=== PATIENT | male | born 1965 | race American Indian/Alaskan Native ===

== ENCOUNTER 2020-05-04 16:32 | Emergency (ER) | payer BC ==
[~2020-05-04] VITALS: Ht 177.8 cm; Wt 81.6 kg
[2020-05-04 16:44] VITALS: BP 120/61
--- NOTE | 2020-05-04 16:50 | NUR ---
54 y/o male from home c/o cough, sob, and fever x 1 wk. RR even and unlabored. Skin hot, dry, intact. Dry cough noted at this time. Unknown + covid contact. Pt received 650mg Tylenol at approx 1300 with no relief of fever. Positioned for comfort. Placed on bedside monitor. medhx: cirrhosis, anemia
--- NOTE | 2020-05-04 16:52 | NUR ---
Dr Guzman at bedside examining patient
[2020-05-04] MEDS ORDERED: DEXAMETHASONE 10 MG/ML VIAL IVP ONE (16:55)
[2020-05-04] MEDS ORDERED: IBUPROFEN 800 MG TAB PO ONE (16:55)
[2020-05-04] MEDS ORDERED: ALBUTEROL HFA MDI 90 MCG/ACTUATION 8 GM INH ONE (16:55)
--- NOTE | 2020-05-04 16:58 | NUR ---
Covid Jacqui swab collected and sent to lab.
[2020-05-04] MEDS ORDERED: cefTRIAXone 1,000 MG VIAL ONE (17:01)
--- NOTE | 2020-05-04 17:10 | NUR ---
20G IV placed to left forearm, blood and cultures drawn at this time
--- NOTE | 2020-05-04 17:16 | NUR ---
Xray at bedside
[2020-05-04 17:29] LABS: BASOPHILS % (AUTO) 0.1 % (0.0-2.0); EOSINOPHILS # (AUTO) 0.1 K/uL (0-0.4); EOSINOPHILS % (AUTO) 1.9 % (0.0-4.0); HEMATOCRIT 32.4 % (36-52); HEMOGLOBIN 10.7 g/dL (12.0-18.0); LYMPHOCYTES # (AUTO) 0.9 K/uL (2.0-11.5); LYMPHOCYTES % (AUTO) 24.3 % (20.5-51.1); MEAN CORPUSCULAR HEMOGLOBIN 29 pg (27-31); MEAN CORPUSCULAR HGB CONC 33 g/dL (33-37); MEAN CORPUSCULAR VOLUME 87.9 fL (80-94); MONOCYTES # (AUTO) 0.5 K/uL (0.8-1.0); MONOCYTES % (AUTO) 14.2 % (1.7-9.3); NEUTROPHILS # (AUTO) 2.3 K/uL (1.8-7.7); NEUTROPHILS % (AUTO) 59.5 % (42.2-75.2); PLATELET COUNT (AUTO) 79 K/uL (140-450); RED BLOOD CELL COUNT(AUTO) 3.69 MIL/uL (4.20-6.10); RED CELL DISTRIBUTION WIDTH 27.7 % (11.6-13.7); WHITE BLOOD COUNT (AUTO) 3.9 K/uL (4.8-10.8)
[2020-05-04 17:45] LABS: FIBRINOGEN 202 mg/dL (200-400); PROTHROMBIN TIME 15.3 secs (10.8-13.4)
[2020-05-04 17:47] LABS: ALBUMIN 1.9 g/dL (3.4-5.0); ANION GAP 10.8 (8-16); CARBON DIOXIDE 26.5 mmol/L (21-32); CREATININE 0.8 mg/dL (0.6-1.3); POTASSIUM 3.3 mmol/L (3.5-5.1); TOTAL BILIRUBIN 0.8 mg/dL (0.0-1.0)
[2020-05-04 18:05] LABS: D-DIMER < 100 ng/ml (0-400)
[2020-05-04 18:09] LABS: APPEARANCE,URINE CLEAR (CLEAR); BILIRUBIN,URINE 1+ (NEGATIVE); BLOOD, URINE NEGATIVE (NEGATIVE); LEUKOCYTE ESTERASE ,URINE NEGATIVE (NEGATIVE); NITRITE, URINE NEGATIVE (NEGATIVE); UGLUCOSE NEGATIVE (NEGATIVE)
[2020-05-04] MEDS ORDERED: FERR-212 PO (18:11)
[2020-05-04 18:19] LABS: COLOR,URINE YELLOW (YELLOW)
--- NOTE | 2020-05-04 18:46 | NUR ---
IV d/c 2x2 gauze placed to iv site. Bleeding controlled.
--- NOTE | 2020-05-04 18:50 | NUR ---
Patient discharged with v/s stable. Written and verbal after care instructions given and explained. Patient alert, oriented and verbalized understanding of instructions. Ambulatory with steady gait. All questions addressed prior to discharge. ID band removed. Patient advised to follow up with PMD. Rx of Albuterol, Levoflexacin 750mg, Prednisone 20mg, and Tessalon Perles 100mg given. Patient educated on indication of medication including possible reaction and side effects. Opportunity to ask questions provided and answered.
[2020-05-04 18:51] VITALS: BP 118/59
== END 2020-05-04 18:50 | disposition home or self-care (01) ==
LOC: MED 16:32
DX: U07.1 COVID-19 (principal); D64.9 Anemia, unspecified; Z79.899 Other long term (current) drug therapy
CPT/HCPCS: 36415; 71045; 80053; 81003; 82728; 83605; 83880; 84484; 85025; 85379; 85384; 85610; 85730; 87040; 87086; 87426; 94664; 96365; 96375; 99284; J0696; J1100

== ENCOUNTER 2020-07-31 09:12 | Inpatient (IN) | payer BC, SELFPAY ==
[~2020-07-31] VITALS: Ht 180.3 cm; Wt 77.1 kg
[~2020-07-31 09:12] MED LIST: FERR-212 PO
[2020-07-31 09:17] VITALS: BP 141/76
[2020-07-31] MEDS ORDERED: NACL 0.9% 1,000 ML IV ONE (09:25)
[2020-07-31 09:50] LABS: BASOPHILS # (AUTO) 0.2 K/uL (0.00-0.22); BASOPHILS % (AUTO) 3.2 % (0.0-2.0); EOSINOPHILS # (AUTO) 0.4 K/uL (0-0.4); EOSINOPHILS % (AUTO) 7.2 % (0.0-4.0); HEMATOCRIT 24.7 % (36-52); HEMOGLOBIN 7.8 g/dL (12.0-18.0); LYMPHOCYTES # (AUTO) 0.9 K/uL (2.0-11.5); MEAN CORPUSCULAR HEMOGLOBIN 29 pg (27-31); MEAN CORPUSCULAR HGB CONC 32 g/dL (33-37); MEAN CORPUSCULAR VOLUME 89.8 fL (80-94); MONOCYTES # (AUTO) 0.8 K/uL (0.8-1.0); MONOCYTES % (AUTO) 15.6 % (1.7-9.3); NEUTROPHILS # (AUTO) 2.9 K/uL (1.8-7.7); PLATELET COUNT (AUTO) 116 K/uL (140-450); RED BLOOD CELL COUNT(AUTO) 2.75 MIL/uL (4.20-6.10); RED CELL DISTRIBUTION WIDTH 17.1 % (11.6-13.7); WHITE BLOOD COUNT (AUTO) 5.1 K/uL (4.8-10.8)
[2020-07-31 10:00] LABS: PROTHROMBIN TIME 15.6 secs (10.8-13.4)
[2020-07-31 10:05] LABS: ALBUMIN 2.1 g/dL (3.4-5.0); ANION GAP 8.3 (8-16); CARBON DIOXIDE 25.3 mmol/L (21-32); CREATININE 0.9 mg/dL (0.6-1.3); POTASSIUM 3.6 mmol/L (3.5-5.1); TOTAL BILIRUBIN 2.8 mg/dL (0.0-1.0)
[2020-07-31] MEDS ORDERED: LACT-103 PO (10:21)
[2020-07-31 12:15] VITALS: BP 130/78
[2020-07-31] MEDS ORDERED: ONDANSETRON 4 MG/2 ML VIAL IM/IVP PRN (12:35)
[2020-07-31] MEDS ORDERED: DOCUSATE SODIUM 100 MG GELCAP PO PRN (12:35)
[2020-07-31] MEDS ORDERED: ZOLPIDEM 5 MG TAB PO PRN (12:35)
[2020-07-31] MEDS ORDERED: POTASSIUM CHLORIDE 10 MEQ TABER PO PRN (12:35)
[2020-07-31] MEDS ORDERED: guaiFENesin DM 200/20 MG-10 ML 10 ML UDC PO PRN (12:35)
[2020-07-31] MEDS ORDERED: ACETAMINOPHEN 325 MG TAB PO PRN (12:35)
[2020-07-31] MEDS: DEXT 5% /NACL 0.9% 1,000 ML IV SCH (13:34)
[2020-07-31 13:48] LABS: FREE T4 (FREE THYROXINE) 1.24 ng/dL (0.76-1.46); MAGNESIUM 1.7 mg/dL (1.8-2.4); PHOSPHORUS 3.3 mg/dL (2.5-4.9); THYROID STIMULATING HORMONE 1.94 uIU/mL (0.34-3.74)
[2020-07-31 14:51] LABS: APPEARANCE,URINE CLEAR (CLEAR); BILIRUBIN,URINE 1+ (NEGATIVE); BLOOD, URINE NEGATIVE (NEGATIVE); COLOR,URINE ORANGE (YELLOW); LEUKOCYTE ESTERASE ,URINE NEGATIVE (NEGATIVE); NITRITE, URINE NEGATIVE (NEGATIVE); UGLUCOSE NEGATIVE (NEGATIVE)
[2020-07-31 16:00] VITALS: BP 126/68
[2020-07-31] MEDS ORDERED: MAG SULF 2000 MG/WATER PREMIX 50 ML IV SCH (17:20)
[2020-07-31] MEDS: OCTREOTIDE ACETATE 1.25 MG in NACL 0.9% 250 ML IV SCH (19:30)
[2020-07-31 20:00] VITALS: BP 117/68
[2020-07-31] MEDS ORDERED: PHYTONADIONE 1 MG/0.5 ML SYR IM SCH (20:55)
[2020-07-31] MEDS ORDERED: MIDAZOLAM 2 MG/2 ML VIAL ONE (21:17)
[2020-07-31] MEDS ORDERED: fentaNYL citrate 0.05 MG/ML VIAL ONE (21:17)
[2020-07-31] MEDS ORDERED: diphenhydrAMINE 50 MG/ML VIAL ONE (21:17)
[2020-07-31] MEDS ORDERED: PHYTONADIONE 10 MG/ML AMP ONE (22:43)
[2020-07-31] MEDS: LACTULOSE 20 GM/30 ML UDC PO SCH (23:01)
[2020-07-31] MEDS: FERROUS SULFATE 325 MG TABEC PO SCH (23:01)
[2020-07-31] MEDS ORDERED: MIDAZOLAM 2 MG/2 ML VIAL IVP ONE (23:15)
[2020-07-31] MEDS ORDERED: fentaNYL citrate 0.05 MG/ML VIAL IVP ONE (23:15)
[2020-08-01] VITALS: BP 146/67
[2020-08-01 01:46] LABS: BASOPHILS # (AUTO) 0.1 K/uL (0.00-0.22); BASOPHILS % (AUTO) 1.7 % (0.0-2.0); EOSINOPHILS # (AUTO) 0.4 K/uL (0-0.4); EOSINOPHILS % (AUTO) 8.1 % (0.0-4.0); HEMATOCRIT 23.2 % (36-52); HEMOGLOBIN 7.5 g/dL (12.0-18.0); LYMPHOCYTES % (AUTO) 19.8 % (20.5-51.1); MEAN CORPUSCULAR HEMOGLOBIN 29 pg (27-31); MEAN CORPUSCULAR HGB CONC 32 g/dL (33-37); MEAN CORPUSCULAR VOLUME 88.9 fL (80-94); MONOCYTES # (AUTO) 0.7 K/uL (0.8-1.0); MONOCYTES % (AUTO) 14.2 % (1.7-9.3); NEUTROPHILS # (AUTO) 2.8 K/uL (1.8-7.7); NEUTROPHILS % (AUTO) 56.2 % (42.2-75.2); PLATELET COUNT (AUTO) 99 K/uL (140-450); RED BLOOD CELL COUNT(AUTO) 2.61 MIL/uL (4.20-6.10); RED CELL DISTRIBUTION WIDTH 16.6 % (11.6-13.7)
[2020-08-01 04:00] VITALS: BP 96/45
[2020-08-01] MEDS: DEXT 5% /NACL 0.9% 1,000 ML IV SCH (05:09)
[2020-08-01 07:07] LABS: BASOPHILS # (AUTO) 0.1 K/uL (0.00-0.22); BASOPHILS % (AUTO) 1.4 % (0.0-2.0); EOSINOPHILS # (AUTO) 0.4 K/uL (0-0.4); EOSINOPHILS % (AUTO) 7.8 % (0.0-4.0); HEMATOCRIT 22.2 % (36-52); HEMOGLOBIN 7.3 g/dL (12.0-18.0); LYMPHOCYTES # (AUTO) 0.6 K/uL (2.0-11.5); LYMPHOCYTES % (AUTO) 14.1 % (20.5-51.1); MEAN CORPUSCULAR HEMOGLOBIN 29 pg (27-31); MEAN CORPUSCULAR HGB CONC 33 g/dL (33-37); MEAN CORPUSCULAR VOLUME 88.2 fL (80-94); MONOCYTES # (AUTO) 0.6 K/uL (0.8-1.0); NEUTROPHILS # (AUTO) 2.9 K/uL (1.8-7.7); NEUTROPHILS % (AUTO) 63.7 % (42.2-75.2); PLATELET COUNT (AUTO) 91 K/uL (140-450); RED BLOOD CELL COUNT(AUTO) 2.52 MIL/uL (4.20-6.10); RED CELL DISTRIBUTION WIDTH 17.1 % (11.6-13.7); WHITE BLOOD COUNT (AUTO) 4.6 K/uL (4.8-10.8)
[2020-08-01 07:29] LABS: ANION GAP 7.7 (8-16); CARBON DIOXIDE 24.9 mmol/L (21-32); CREATININE 0.7 mg/dL (0.6-1.3); POTASSIUM 3.6 mmol/L (3.5-5.1)
[2020-08-01 08:00] VITALS: BP 166/60
[2020-08-01] MEDS: PANTOPRAZOLE 40 MG TABEC PO SCH (08:25)
[2020-08-01] MEDS: FERROUS SULFATE 325 MG TABEC PO SCH ×2 (08:26→20:09)
[2020-08-01] MEDS: LACTULOSE 20 GM/30 ML UDC PO SCH (08:28)
[2020-08-01] MEDS ORDERED: LACTULOSE 20 GM/30 ML UDC PO SCH ×2 (09:00→09:30)
[2020-08-01] MEDS ORDERED: HYDROCORTISONE SUPPOSITORY 25 MG SUPP RC SCH (09:00)
[2020-08-01] MEDS ORDERED: SENNA 8.6 MG TAB PO SCH (09:00)
[2020-08-01] MEDS ORDERED: MAG SULF 2000 MG/WATER PREMIX 50 ML IV SCH (09:00)
[2020-08-01] MEDS ORDERED: IRON SUCROSE COMPLEX 100 MG/5 ML VIAL IVP SCH (09:00)
[2020-08-01 09:06] LABS: T4 (THYROXINE) 5.8 ug/dL (4.5-12.0)
[2020-08-01 12:00] VITALS: BP 123/64
[2020-08-01] MEDS: MIDODRINE 5 MG TAB PO SCH ×2 (13:00→18:13)
[2020-08-01 14:50] LABS: BASOPHILS # (AUTO) 0.1 K/uL (0.00-0.22); EOSINOPHILS # (AUTO) 0.4 K/uL (0-0.4); EOSINOPHILS % (AUTO) 6.8 % (0.0-4.0); HEMOGLOBIN 7.2 g/dL (12.0-18.0); LYMPHOCYTES # (AUTO) 0.9 K/uL (2.0-11.5); LYMPHOCYTES % (AUTO) 15.2 % (20.5-51.1); MEAN CORPUSCULAR HEMOGLOBIN 29 pg (27-31); MEAN CORPUSCULAR HGB CONC 33 g/dL (33-37); MEAN CORPUSCULAR VOLUME 88.4 fL (80-94); MONOCYTES # (AUTO) 0.8 K/uL (0.8-1.0); MONOCYTES % (AUTO) 13.6 % (1.7-9.3); NEUTROPHILS # (AUTO) 3.6 K/uL (1.8-7.7); NEUTROPHILS % (AUTO) 63.4 % (42.2-75.2); PLATELET COUNT (AUTO) 99 K/uL (140-450); RED BLOOD CELL COUNT(AUTO) 2.49 MIL/uL (4.20-6.10); RED CELL DISTRIBUTION WIDTH 17.3 % (11.6-13.7); WHITE BLOOD COUNT (AUTO) 5.7 K/uL (4.8-10.8)
[2020-08-01] MEDS ORDERED: MIDAZOLAM 5 MG/5 ML VIAL ONE (15:35)
[2020-08-01] MEDS ORDERED: diphenhydrAMINE 50 MG/ML VIAL ONE (15:35)
[2020-08-01] MEDS ORDERED: fentaNYL citrate 0.05 MG/ML VIAL ONE (15:35)
[2020-08-01 16:00] VITALS: BP 107/72
[2020-08-01] MEDS ORDERED: fentaNYL citrate 0.05 MG/ML VIAL IVP ONE (16:40)
[2020-08-01] MEDS ORDERED: MIDAZOLAM 2 MG/2 ML VIAL IVP ONE (16:40)
[2020-08-01] MEDS ORDERED: MINERAL OIL 30 ML UDC PO SCH (17:00)
[2020-08-01] MEDS ORDERED: SPIRONOLACTONE 50 MG TAB PO SCH (17:00)
[2020-08-01] MEDS ORDERED: FUROSEMIDE 20 MG/2 ML VIAL IVP SCH (17:15)
[2020-08-01] MEDS: HYDROcodone/APAP 7.5/325 MG 1 TAB PO PRN (17:23)
[2020-08-01] MEDS: OCTREOTIDE ACETATE 1.25 MG in NACL 0.9% 250 ML IV SCH (18:13)
[2020-08-01 20:00] VITALS: BP 99/76
[2020-08-01] MEDS: POLYETHYLENE GLYCOL 17 GM/PKT PO SCH (21:32)
[2020-08-02] VITALS: BP 109/60
[2020-08-02 04:00] VITALS: BP 103/57
[2020-08-02] MEDS: DEXT 5% /NACL 0.9% 1,000 ML IV SCH (05:16)
[2020-08-02] MEDS: MIDODRINE 5 MG TAB PO SCH ×4 (06:05→19:00)
[2020-08-02 06:29] LABS: BASOPHILS # (AUTO) 0.1 K/uL (0.00-0.22); EOSINOPHILS # (AUTO) 0.5 K/uL (0-0.4); EOSINOPHILS % (AUTO) 6.2 % (0.0-4.0); HEMATOCRIT 21.9 % (36-52); HEMOGLOBIN 7.3 g/dL (12.0-18.0); LYMPHOCYTES % (AUTO) 12.7 % (20.5-51.1); MEAN CORPUSCULAR HEMOGLOBIN 30 pg (27-31); MEAN CORPUSCULAR HGB CONC 33 g/dL (33-37); MEAN CORPUSCULAR VOLUME 89.2 fL (80-94); MONOCYTES % (AUTO) 12.6 % (1.7-9.3); NEUTROPHILS # (AUTO) 5.5 K/uL (1.8-7.7); NEUTROPHILS % (AUTO) 67.5 % (42.2-75.2); PLATELET COUNT (AUTO) 108 K/uL (140-450); RED BLOOD CELL COUNT(AUTO) 2.45 MIL/uL (4.20-6.10); RED CELL DISTRIBUTION WIDTH 16.9 % (11.6-13.7); WHITE BLOOD COUNT (AUTO) 8.2 K/uL (4.8-10.8)
[2020-08-02 06:56] LABS: CARBON DIOXIDE 25.1 mmol/L (21-32); CREATININE 0.9 mg/dL (0.6-1.3); POTASSIUM 4.1 mmol/L (3.5-5.1)
[2020-08-02 08:00] VITALS: BP 119/60
[2020-08-02] MEDS: POLYETHYLENE GLYCOL 17 GM/PKT PO SCH ×2 (09:49→20:23)
[2020-08-02] MEDS: FERROUS SULFATE 325 MG TABEC PO SCH ×2 (09:51→20:23)
[2020-08-02] MEDS: SPIRONOLACTONE 50 MG TAB PO SCH (09:51)
[2020-08-02] MEDS: MINERAL OIL 30 ML UDC PO SCH (09:52)
[2020-08-02] MEDS: PANTOPRAZOLE 40 MG TABEC PO SCH (09:52)
[2020-08-02 12:00] VITALS: BP 107/60
[2020-08-02] MEDS ORDERED: FUROSEMIDE 20 MG/2 ML VIAL IVP SCH (13:30)
[2020-08-02 16:00] VITALS: BP 110/61
[2020-08-02 20:00] VITALS: BP 119/56
[2020-08-02] MEDS: PROPRANOLOL 20 MG TAB PO SCH (20:30)
[2020-08-03] VITALS: BP 114/62
[2020-08-03 04:00] VITALS: BP 110/49
[2020-08-03] MEDS: MIDODRINE 5 MG TAB PO SCH ×3 (06:39→18:31)
[2020-08-03 07:05] LABS: BASOPHILS # (AUTO) 0.1 K/uL (0.00-0.22); BASOPHILS % (AUTO) 1.3 % (0.0-2.0); EOSINOPHILS # (AUTO) 0.5 K/uL (0-0.4); EOSINOPHILS % (AUTO) 7.6 % (0.0-4.0); HEMOGLOBIN 7.2 g/dL (12.0-18.0); LYMPHOCYTES % (AUTO) 16.7 % (20.5-51.1); MEAN CORPUSCULAR HEMOGLOBIN 30 pg (27-31); MEAN CORPUSCULAR HGB CONC 33 g/dL (33-37); MEAN CORPUSCULAR VOLUME 91.1 fL (80-94); MONOCYTES # (AUTO) 0.9 K/uL (0.8-1.0); MONOCYTES % (AUTO) 15.1 % (1.7-9.3); NEUTROPHILS # (AUTO) 3.7 K/uL (1.8-7.7); NEUTROPHILS % (AUTO) 59.3 % (42.2-75.2); PLATELET COUNT (AUTO) 106 K/uL (140-450); RED BLOOD CELL COUNT(AUTO) 2.42 MIL/uL (4.20-6.10); RED CELL DISTRIBUTION WIDTH 17.2 % (11.6-13.7); WHITE BLOOD COUNT (AUTO) 6.2 K/uL (4.8-10.8)
[2020-08-03 07:20] LABS: ANION GAP 7.2 (8-16); CARBON DIOXIDE 27.4 mmol/L (21-32); CREATININE 0.8 mg/dL (0.6-1.3); POTASSIUM 3.6 mmol/L (3.5-5.1)
[2020-08-03 08:00] VITALS: BP 101/52
[2020-08-03] MEDS: PROPRANOLOL 20 MG TAB PO SCH ×2 (08:51→21:00)
[2020-08-03] MEDS: FERROUS SULFATE 325 MG TABEC PO SCH ×2 (08:52→21:34)
[2020-08-03] MEDS: SPIRONOLACTONE 50 MG TAB PO SCH ×2 (08:52→21:34)
[2020-08-03] MEDS: PANTOPRAZOLE 40 MG TABEC PO SCH (08:52)
[2020-08-03] MEDS: MINERAL OIL 30 ML UDC PO SCH (08:59)
[2020-08-03] MEDS: POLYETHYLENE GLYCOL 17 GM/PKT PO SCH ×2 (08:59→12:03)
[2020-08-03] MEDS ORDERED: FUROSEMIDE 20 MG/2 ML VIAL IVP SCH (11:00)
[2020-08-03] MEDS ORDERED: POTASSIUM CHLORIDE 20% 40 MEQ/15 ML UDC PO SCH (11:00)
[2020-08-03 12:59] VITALS: BP 106/61
[2020-08-03 16:00] VITALS: BP 106/56
[2020-08-03] MEDS ORDERED: FERR-212 PO (17:22)
[2020-08-03] MEDS ORDERED: LACT-103 PO (17:22)
[2020-08-03] MEDS ORDERED: SPIR50TA PO (17:22)
[2020-08-03] MEDS ORDERED: PRO5 PO (17:22)
[2020-08-03] MEDS ORDERED: [UNRECOGNIZED DRUG - CODE] PO (17:22)
[2020-08-03] MEDS ORDERED: PROP20TA29 PO (17:22)
[2020-08-03] MEDS ORDERED: FURO20TA8 PO (17:22)
[2020-08-03 20:00] VITALS: BP 113/59
[2020-08-03 20:34] LABS: BASOPHILS # (AUTO) 0.1 K/uL (0.00-0.22); BASOPHILS % (AUTO) 1.9 % (0.0-2.0); EOSINOPHILS # (AUTO) 0.7 K/uL (0-0.4); EOSINOPHILS % (AUTO) 9.3 % (0.0-4.0); HEMATOCRIT 25.6 % (36-52); HEMOGLOBIN 8.3 g/dL (12.0-18.0); LYMPHOCYTES # (AUTO) 1.2 K/uL (2.0-11.5); LYMPHOCYTES % (AUTO) 15.9 % (20.5-51.1); MEAN CORPUSCULAR HEMOGLOBIN 30 pg (27-31); MEAN CORPUSCULAR HGB CONC 33 g/dL (33-37); MEAN CORPUSCULAR VOLUME 91.6 fL (80-94); MONOCYTES # (AUTO) 1.1 K/uL (0.8-1.0); NEUTROPHILS # (AUTO) 4.4 K/uL (1.8-7.7); NEUTROPHILS % (AUTO) 58.9 % (42.2-75.2); PLATELET COUNT (AUTO) 155 K/uL (140-450); RED BLOOD CELL COUNT(AUTO) 2.79 MIL/uL (4.20-6.10); WHITE BLOOD COUNT (AUTO) 7.5 K/uL (4.8-10.8)
[2020-08-04] VITALS: BP 108/59
[2020-08-04 04:00] VITALS: BP 115/53
[2020-08-04 06:22] LABS: BASOPHILS # (AUTO) 0.1 K/uL (0.00-0.22); BASOPHILS % (AUTO) 1.2 % (0.0-2.0); EOSINOPHILS # (AUTO) 0.6 K/uL (0-0.4); EOSINOPHILS % (AUTO) 10.4 % (0.0-4.0); HEMATOCRIT 23.5 % (36-52); HEMOGLOBIN 7.8 g/dL (12.0-18.0); LYMPHOCYTES # (AUTO) 1.2 K/uL (2.0-11.5); LYMPHOCYTES % (AUTO) 21.6 % (20.5-51.1); MEAN CORPUSCULAR HEMOGLOBIN 30 pg (27-31); MEAN CORPUSCULAR HGB CONC 33 g/dL (33-37); MEAN CORPUSCULAR VOLUME 90.6 fL (80-94); MONOCYTES # (AUTO) 0.7 K/uL (0.8-1.0); MONOCYTES % (AUTO) 13.7 % (1.7-9.3); NEUTROPHILS # (AUTO) 2.9 K/uL (1.8-7.7); NEUTROPHILS % (AUTO) 53.1 % (42.2-75.2); PLATELET COUNT (AUTO) 119 K/uL (140-450); RED BLOOD CELL COUNT(AUTO) 2.59 MIL/uL (4.20-6.10); RED CELL DISTRIBUTION WIDTH 17.1 % (11.6-13.7); WHITE BLOOD COUNT (AUTO) 5.4 K/uL (4.8-10.8)
[2020-08-04] MEDS: MIDODRINE 5 MG TAB PO SCH ×3 (06:31→19:00)
[2020-08-04 06:36] LABS: ANION GAP 9.3 (8-16); CARBON DIOXIDE 28.3 mmol/L (21-32); CREATININE 0.8 mg/dL (0.6-1.3); POTASSIUM 3.6 mmol/L (3.5-5.1)
[2020-08-04 08:00] VITALS: BP 104/55
[2020-08-04] MEDS: FERROUS SULFATE 325 MG TABEC PO SCH ×2 (08:19→21:07)
[2020-08-04] MEDS: POLYETHYLENE GLYCOL 17 GM/PKT PO SCH (08:19)
[2020-08-04] MEDS: FUROSEMIDE 20 MG TAB PO SCH (08:20)
[2020-08-04] MEDS: PANTOPRAZOLE 40 MG TABEC PO SCH (08:20)
[2020-08-04] MEDS: SPIRONOLACTONE 50 MG TAB PO SCH ×2 (08:21→21:07)
[2020-08-04] MEDS: PROPRANOLOL 20 MG TAB PO SCH ×2 (08:21→21:07)
[2020-08-04] MEDS: MINERAL OIL 30 ML UDC PO SCH (08:22)
[2020-08-04 12:00] VITALS: BP 106/52
[2020-08-04 14:37] LABS: BASOPHILS % (AUTO) 0.5 % (0.0-2.0); EOSINOPHILS # (AUTO) 0.7 K/uL (0-0.4); EOSINOPHILS % (AUTO) 9.5 % (0.0-4.0); HEMOGLOBIN 8.8 g/dL (12.0-18.0); LYMPHOCYTES # (AUTO) 1.5 K/uL (2.0-11.5); LYMPHOCYTES % (AUTO) 20.8 % (20.5-51.1); MEAN CORPUSCULAR HEMOGLOBIN 30 pg (27-31); MEAN CORPUSCULAR HGB CONC 32 g/dL (33-37); MEAN CORPUSCULAR VOLUME 93.1 fL (80-94); MONOCYTES # (AUTO) 0.9 K/uL (0.8-1.0); MONOCYTES % (AUTO) 12.6 % (1.7-9.3); NEUTROPHILS # (AUTO) 4.2 K/uL (1.8-7.7); NEUTROPHILS % (AUTO) 56.6 % (42.2-75.2); PLATELET COUNT (AUTO) 157 K/uL (140-450); RED CELL DISTRIBUTION WIDTH 17.4 % (11.6-13.7); WHITE BLOOD COUNT (AUTO) 7.4 K/uL (4.8-10.8)
[2020-08-04 16:00] VITALS: BP 108/85
[2020-08-04 20:00] VITALS: BP 110/60
[2020-08-05] VITALS: BP 111/65
[2020-08-05 04:00] VITALS: BP 111/55
[2020-08-05] MEDS: MIDODRINE 5 MG TAB PO SCH ×3 (06:43→18:42)
[2020-08-05 07:03] LABS: BASOPHILS # (AUTO) 0.1 K/uL (0.00-0.22); EOSINOPHILS # (AUTO) 0.5 K/uL (0-0.4); EOSINOPHILS % (AUTO) 9.9 % (0.0-4.0); HEMATOCRIT 23.2 % (36-52); HEMOGLOBIN 7.6 g/dL (12.0-18.0); LYMPHOCYTES # (AUTO) 1.4 K/uL (2.0-11.5); LYMPHOCYTES % (AUTO) 27.8 % (20.5-51.1); MEAN CORPUSCULAR HEMOGLOBIN 30 pg (27-31); MEAN CORPUSCULAR HGB CONC 33 g/dL (33-37); MEAN CORPUSCULAR VOLUME 91.4 fL (80-94); MONOCYTES # (AUTO) 0.7 K/uL (0.8-1.0); MONOCYTES % (AUTO) 14.9 % (1.7-9.3); NEUTROPHILS # (AUTO) 2.3 K/uL (1.8-7.7); NEUTROPHILS % (AUTO) 45.4 % (42.2-75.2); PLATELET COUNT (AUTO) 123 K/uL (140-450); RED BLOOD CELL COUNT(AUTO) 2.54 MIL/uL (4.20-6.10); RED CELL DISTRIBUTION WIDTH 17.9 % (11.6-13.7)
[2020-08-05 07:20] LABS: ANION GAP 8.2 (8-16); CARBON DIOXIDE 28.4 mmol/L (21-32); CREATININE 0.9 mg/dL (0.6-1.3); POTASSIUM 4.6 mmol/L (3.5-5.1)
[2020-08-05 08:00] VITALS: BP 105/55
[2020-08-05] MEDS: PANTOPRAZOLE 40 MG TABEC PO SCH (08:31)
[2020-08-05] MEDS: FERROUS SULFATE 325 MG TABEC PO SCH ×2 (08:31→21:53)
[2020-08-05] MEDS: FUROSEMIDE 20 MG TAB PO SCH (08:37)
[2020-08-05] MEDS: MINERAL OIL 30 ML UDC PO SCH (08:44)
[2020-08-05] MEDS: POLYETHYLENE GLYCOL 17 GM/PKT PO SCH (08:44)
[2020-08-05] MEDS: PROPRANOLOL 20 MG TAB PO SCH ×2 (08:50→21:53)
[2020-08-05] MEDS: SPIRONOLACTONE 50 MG TAB PO SCH ×2 (08:50→21:53)
[2020-08-05] MEDS ORDERED: BUPIVACAINE-MPF/EPI 0.25% 10 ML VIAL INJ ONE ×2 (10:43→16:00)
[2020-08-05] MEDS ORDERED: LIDOCAINE 1% 500 MG/50 ML VIAL ONE (10:43)
[2020-08-05 12:00] VITALS: BP 102/60
[2020-08-05] MEDS ORDERED: ETOMIDATE 20 MG/10 ML VIAL IVP ONE ×2 (13:42→15:03)
[2020-08-05] MEDS ORDERED: SEVOFLURANE 250 ML BTL INH ONE (15:03)
[2020-08-05] MEDS ORDERED: fentaNYL citrate 0.05 MG/ML VIAL ONE (15:03)
[2020-08-05] MEDS ORDERED: DEXAMETHASONE 4 MG/ML VIAL ONE (15:03)
[2020-08-05] MEDS ORDERED: NEOSTIGMINE 1:1000 10 MG/10 ML VIAL ONE (15:03)
[2020-08-05] MEDS ORDERED: ONDANSETRON 4 MG/2 ML VIAL ONE (15:03)
[2020-08-05] MEDS ORDERED: LIDOCAINE 2% 100 MG/5 ML SYR IVP ONE (15:03)
[2020-08-05] MEDS ORDERED: SUCCINYLCHOLINE CHLORIDE 200 MG/10 ML VIAL IVP ONE (15:03)
[2020-08-05] MEDS ORDERED: GLYCOPYRROLATE 0.2 MG/ML VIAL ONE (15:03)
[2020-08-05] MEDS ORDERED: ROCURONIUM 50 MG/5 ML VIAL IV ONE (15:03)
[2020-08-05] MEDS ORDERED: PROPOFOL 200 MG/20 ML VIAL IV ONE (15:03)
[2020-08-05] MEDS ORDERED: BUPIVACAINE MPF 0.25% 10 ML VIAL INJ ONE (15:59)
[2020-08-05 16:00] VITALS: BP 133/72
[2020-08-05] MEDS ORDERED: ONDANSETRON 4 MG/2 ML VIAL IVP PRN (16:00)
[2020-08-05] MEDS ORDERED: MEPERIDINE 25 MG/ML SYR IVP PRN (16:00)
[2020-08-05] MEDS ORDERED: diphenhydrAMINE 50 MG/ML VIAL IVP PRN (16:00)
[2020-08-05] MEDS ORDERED: HYDROcodone/APAP 5/325 MG 1 TAB TAB PO PRN (16:20)
[2020-08-05] MEDS ORDERED: LORazepam 2 MG/ML VIAL IM/IVP SCH (16:25)
[2020-08-05] MEDS: fentaNYL citrate 0.05 MG/ML VIAL IVP PRN ×3 (16:34→16:57)
[2020-08-05] MEDS: LACTATED RINGERS 1,000 ML IV SCH (17:30)
[2020-08-05] MEDS: HYDROmorphone 1 MG/ML AMP IVP PRN (17:39)
[2020-08-05] MEDS: HYDROcodone/APAP 7.5/325 MG 1 TAB PO PRN ×2 (18:40→22:04)
[2020-08-05 20:00] VITALS: BP 122/68
[2020-08-06] VITALS: BP 95/48
[2020-08-06] MEDS: LACTATED RINGERS 1,000 ML IV SCH ×2 (00:20→04:22)
[2020-08-06] MEDS: HYDROmorphone 1 MG/ML AMP IVP PRN ×3 (02:13→15:11)
[2020-08-06 04:00] VITALS: BP 126/74
[2020-08-06] MEDS: HYDROcodone/APAP 7.5/325 MG 1 TAB PO PRN ×2 (05:12→11:54)
[2020-08-06] MEDS: MIDODRINE 5 MG TAB PO SCH ×2 (06:12→13:00)
[2020-08-06 07:36] LABS: ANION GAP 10.5 (8-16); CARBON DIOXIDE 26.8 mmol/L (21-32); POTASSIUM 4.3 mmol/L (3.5-5.1)
[2020-08-06 07:37] LABS: BASOPHILS % (AUTO) 0.1 % (0.0-2.0); EOSINOPHILS % (AUTO) 0.1 % (0.0-4.0); HEMATOCRIT 33.2 % (36-52); LYMPHOCYTES # (AUTO) 1.1 K/uL (2.0-11.5); MEAN CORPUSCULAR HEMOGLOBIN 30 pg (27-31); MEAN CORPUSCULAR HGB CONC 33 g/dL (33-37); MEAN CORPUSCULAR VOLUME 90.7 fL (80-94); MONOCYTES # (AUTO) 1.1 K/uL (0.8-1.0); MONOCYTES % (AUTO) 9.5 % (1.7-9.3); NEUTROPHILS # (AUTO) 9.1 K/uL (1.8-7.7); NEUTROPHILS % (AUTO) 80.3 % (42.2-75.2); PLATELET COUNT (AUTO) 221 K/uL (140-450); RED BLOOD CELL COUNT(AUTO) 3.66 MIL/uL (4.20-6.10); RED CELL DISTRIBUTION WIDTH 17.7 % (11.6-13.7); WHITE BLOOD COUNT (AUTO) 11.4 K/uL (4.8-10.8)
[2020-08-06 08:00] VITALS: BP 120/61
[2020-08-06 08:41] LABS: HEMOGLOBIN 10.9 g/dL (12.0-18.0)
[2020-08-06] MEDS: MINERAL OIL 30 ML UDC PO SCH (09:00)
[2020-08-06] MEDS ORDERED: DOCUSATE 100 MG/10 ML UDC GT SCH (09:00)
[2020-08-06] MEDS ORDERED: LIDOCAINE 5% 1 EA PATCH TP SCH (09:00)
[2020-08-06] MEDS: FUROSEMIDE 20 MG TAB PO SCH (09:27)
[2020-08-06] MEDS: SPIRONOLACTONE 50 MG TAB PO SCH (09:28)
[2020-08-06] MEDS: FERROUS SULFATE 325 MG TABEC PO SCH (09:28)
[2020-08-06] MEDS: PANTOPRAZOLE 40 MG TABEC PO SCH (09:29)
[2020-08-06] MEDS: PROPRANOLOL 20 MG TAB PO SCH (09:31)
[2020-08-06] MEDS: POLYETHYLENE GLYCOL 17 GM/PKT PO SCH (09:32)
[2020-08-06] MEDS ORDERED: CRUSHER, PILL MC ONE (09:36)
[2020-08-06] MEDS ORDERED: ACET-8386 PO (11:49)
[2020-08-06 12:00] VITALS: BP 123/68
[2020-08-06 12:21] LABS: BASOPHILS % (AUTO) 0.2 % (0.0-2.0); EOSINOPHILS # (AUTO) 0.1 K/uL (0-0.4); EOSINOPHILS % (AUTO) 0.4 % (0.0-4.0); HEMATOCRIT 31.7 % (36-52); HEMOGLOBIN 10.5 g/dL (12.0-18.0); LYMPHOCYTES # (AUTO) 1.7 K/uL (2.0-11.5); LYMPHOCYTES % (AUTO) 12.5 % (20.5-51.1); MEAN CORPUSCULAR HEMOGLOBIN 30 pg (27-31); MEAN CORPUSCULAR HGB CONC 33 g/dL (33-37); MEAN CORPUSCULAR VOLUME 90.5 fL (80-94); MONOCYTES # (AUTO) 1.6 K/uL (0.8-1.0); MONOCYTES % (AUTO) 11.4 % (1.7-9.3); NEUTROPHILS # (AUTO) 10.2 K/uL (1.8-7.7); NEUTROPHILS % (AUTO) 75.5 % (42.2-75.2); PLATELET COUNT (AUTO) 201 K/uL (140-450); RED BLOOD CELL COUNT(AUTO) 3.51 MIL/uL (4.20-6.10); RED CELL DISTRIBUTION WIDTH 18.4 % (11.6-13.7); WHITE BLOOD COUNT (AUTO) 13.6 K/uL (4.8-10.8)
== END 2020-08-06 16:00 | disposition home or self-care (01) | DRG 347 ==
LOC: MED 09:12 → MTU 11:34
PROVIDERS: ADMIT Hospitalist; ATTEND Hospitalist
PROC: 0DJ08ZZ Inspection of Upper Intestinal Tract, Via Natural or Artificial Opening Endoscopic (ICD-10-PCS; 2020-07-31)
PROC: 0DBG8ZZ Excision of Left Large Intestine, Via Natural or Artificial Opening Endoscopic (ICD-10-PCS; 2020-07-31)
PROC: 06LY4CC Occlusion of Hemorrhoidal Plexus with Extraluminal Device, Percutaneous Endoscopic Approach (ICD-10-PCS; 2020-08-01)
PROC: 30233N1 Transfusion of Nonautologous Red Blood Cells into Peripheral Vein, Percutaneous Approach (ICD-10-PCS; 2020-08-01)
PROC: 30233K1 Transfusion of Nonautologous Frozen Plasma into Peripheral Vein, Percutaneous Approach (ICD-10-PCS; principal; 2020-08-01 14:00)
PROC: 06BY0ZC Excision of Hemorrhoidal Plexus, Open Approach (ICD-10-PCS; 2020-08-05)
DX: K64.8 Other hemorrhoids (principal); E43 Unspecified severe protein-calorie malnutrition; G93.41 Metabolic encephalopathy; K92.1 Melena; E87.1 Hypo-osmolality and hyponatremia; K70.30 Alcoholic cirrhosis of liver without ascites; D63.8 Anemia in other chronic diseases classified elsewhere; Z20.822 Contact with and (suspected) exposure to COVID-19; Z68.23 Body mass index [BMI] 23.0-23.9, adult; R74.01 Elevation of levels of liver transaminase levels; K57.30 Diverticulosis of large intestine without perforation or abscess without bleeding
CPT/HCPCS: 36415; 71045; 76700; 78278; 80048; 80053; 81003; 82140; 82150; 82607; 82728; 82746; 83036; 83540; 83690; 83735; 83880; 84100; 84436; 84439; 84443; 84479; 84484; 85025; 85045; 85384; 85610; 85730; 86677; 86886; 86900; 86901; 86920; 87081; 88305; 96360; 99285; A9512; A9560; J0330; J1100; J1170; J1200; J1756; J1940; J2001; J2175; J2250; J2354; J2405; J2704; J2710; J3010; J3430; J3475; J3490; J7030; J7042; J7120; P9016; P9017

== ENCOUNTER 2020-08-08 20:43 | Inpatient (IN) | payer BC, SELFPAY ==
[~2020-08-08] VITALS: Ht 154.9 cm; Wt 87.1 kg
[~2020-08-08 20:43] MED LIST changes: +ACET-8386 PO; +FURO20TA8 PO; +LACT-103 PO; +PRO5 PO; +PROP20TA29 PO; +SPIR50TA PO; +[UNRECOGNIZED DRUG - CODE] PO
[2020-08-08 21:02] VITALS: BP 127/63
--- NOTE | 2020-08-08 21:22 | NUR ---
PT TAKEN TO XRAY VIA W/C
[2020-08-08 21:35] LABS: BASOPHILS % (AUTO) 0.3 % (0.0-2.0); EOSINOPHILS # (AUTO) 0.1 K/uL (0-0.4); EOSINOPHILS % (AUTO) 1.2 % (0.0-4.0); HEMATOCRIT 24.3 % (36-52); LYMPHOCYTES # (AUTO) 1.4 K/uL (2.0-11.5); MEAN CORPUSCULAR HEMOGLOBIN 30 pg (27-31); MEAN CORPUSCULAR HGB CONC 33 g/dL (33-37); MEAN CORPUSCULAR VOLUME 90.6 fL (80-94); MONOCYTES # (AUTO) 1.6 K/uL (0.8-1.0); MONOCYTES % (AUTO) 12.7 % (1.7-9.3); NEUTROPHILS # (AUTO) 9.3 K/uL (1.8-7.7); NEUTROPHILS % (AUTO) 74.8 % (42.2-75.2); PLATELET COUNT (AUTO) 103 K/uL (140-450); RED BLOOD CELL COUNT(AUTO) 2.68 MIL/uL (4.20-6.10); RED CELL DISTRIBUTION WIDTH 19.1 % (11.6-13.7); WHITE BLOOD COUNT (AUTO) 12.4 K/uL (4.8-10.8)
--- NOTE | 2020-08-08 21:35 | NUR ---
PT RETURNED FROM XRAY
[2020-08-08 21:39] LABS: ALBUMIN 1.6 g/dL (3.4-5.0); ANION GAP 9.8 (8-16); CARBON DIOXIDE 25.4 mmol/L (21-32); POTASSIUM 4.2 mmol/L (3.5-5.1); TOTAL BILIRUBIN 1.9 mg/dL (0.0-1.0)
[2020-08-08 21:44] LABS: PROTHROMBIN TIME 20.6 secs (10.8-13.4)
--- NOTE | 2020-08-08 21:45 | NUR ---
DR KING AT BEDSIDE EXAMINING PT
[2020-08-08] MEDS ORDERED: PANTOPRAZOLE 40 MG INJ VIAL IVP ONE (21:50)
[2020-08-08] MEDS ORDERED: metroNIDAZOLE 500 MG/NS PREMIX 100 ML IV ONE (21:50)
[2020-08-08] MEDS ORDERED: NACL 0.9% 500 ML IV SCH (21:50)
--- NOTE | 2020-08-08 21:50 | NUR ---
54 Y/O MALE C/O FEVERS AND ABD PAIN XYESTERDAY. LOSS OF APPETITE. DIARRHEA. PT STATES 4/10 CONTINOUS BURNING PAIN. MEDHX: CIRRHOSIS NKA
[2020-08-08 22:20] LABS: APPEARANCE,URINE CLEAR (CLEAR); BILIRUBIN,URINE NEGATIVE (NEGATIVE); BLOOD, URINE NEGATIVE (NEGATIVE); COLOR,URINE YELLOW (YELLOW); LEUKOCYTE ESTERASE ,URINE NEGATIVE (NEGATIVE); NITRITE, URINE NEGATIVE (NEGATIVE); PH,URINE 5.5 (5.0-9.0); UGLUCOSE NEGATIVE (NEGATIVE)
--- NOTE | 2020-08-08 22:26 | NUR ---
PT TAKEN TO CT SCAN VIA W/C
[2020-08-08] MEDS ORDERED: ACETAMINOPHEN EXTRA STRENGTH 500 MG TAB PO ONE (22:35)
--- NOTE | 2020-08-08 22:35 | NUR ---
PT RETURNED FROM CT SCAN
[2020-08-08] MEDS ORDERED: cefTRIAXone 1,000 MG VIAL ONE (22:59)
[2020-08-08] MEDS ORDERED: ONDANSETRON 4 MG/2 ML VIAL IVP PRN (23:25)
--- NOTE | 2020-08-08 23:43 | NUR ---
DONNA SWAB COLLECTED AND SENT TO LAB
[2020-08-08] MEDS ORDERED: NACL 0.9% 1,500 ML IV ONE (23:45)
[2020-08-08] MEDS ORDERED: MORPHINE SULFATE 4 MG/ML SYR IVP ONE (23:50)
[2020-08-09] MEDS ORDERED: DOCU-299 PO (00:21)
--- NOTE | 2020-08-09 01:00 | NUR ---
Patient will be admitted to care of DR. SAENZ. Admited to TELEMETRY. Will go to room 104B. Belongings list completed. Report to ANGELES CAMARENA.
--- NOTE | 2020-08-09 01:00 | NUR ---
RECEIVED PATIENT FROM ER NURSE VIA [facility] FOR CONT[facility]UITY OF CARE. AAOX4. RESPIRATIONS EVEN, UNLABORED. NO S/S RESPIRATORY DISTRESS. S1/S2 AUSCULTATED. PATIENT C/O 2/10 EPIGASTRIC PAIN, TOLERABLE LEVEL. SKIN ASSESSMENT COMPLETED. SKIN WARM, DRY AND INTACT. IV SITE NOTED TO RIGHT AC 20G PATENT/INTACT, INFUSING FLUIDS WELL. NO S/S ACUTE DISTRESS. ABDOMEN SOFT, TENDER AND SLIGHTLY ROUNDED. BOWEL SOUNDS ACTIVE x4 QUADRANTS. PATIENT IS CONTINENT OF B/B. MRSA SCREEN COMPLETED. PATIENT ORIENTED TO ROOM/STAFF/CALL LIGHT. PLAN OF CARE DISCUSSED. SAFETY PRECAUTIONS IN PLACE. CALL LIGHT WITHIN REACH AT ALL TIMES.
[2020-08-09] MEDS: DEXT 5% /NACL 0.9% 1,000 ML IV SCH ×2 (01:36→17:23)
--- NOTE | 2020-08-09 03:00 | NUR ---
PT FOUND ASLEEP ON LEFT SIDE IN BED. PT HAS VISIBLE EQUAL RISE AND FALL UPON RESPIRATION. NO DISTRESS NOTED. BED LOCKED IN LOWEST POSITION WITH 2 SIDE RAILS UP FOR SAFETY AND CALL LIGHT WITHIN REACH. WILL CONTINUE TO MONITOR.
[2020-08-09 04:00] VITALS: BP 97/47
--- NOTE | 2020-08-09 04:55 | NUR ---
PT FOUND ASLEEP ON RIGHT SIDE IN BED. PT HAS VISIBLE EQUAL RISE AND FALL UPON RESPIRATION. NO DISTRESS NOTED. BED LOCKED IN LOWEST POSITION WITH 2 SIDE RAILS UP FOR SAFETY AND CALL LIGHT WITHIN REACH. WILL CONTINUE TO MONITOR.
--- NOTE | 2020-08-09 07:10 | NUR ---
ENDORSED PATIENT TO AM SHIFT NURSE FOR CONTINUITY OF CARE.
--- NOTE | 2020-08-09 07:15 | NUR ---
RECEIVED BEDSIDE ENDORSEMENT FROM NIGHTSILFT NURSE FOR CONTINUITY OF CARE.
--- NOTE | 2020-08-09 07:19 | NUR ---
FNS REFERRAL RECEIVED ON 08/09/20. REFERRAL TRIGGER OF N/A NUTRITIONAL HISTORY DOES NOT MEET CRITERIA PER HOSPITAL POLICY. PATIENT WILL BE SEEN AND ASSESSED ACCORDING TO NUTRITION CARE POLICY. PATIENT HAS BEEN SCREENED AND CATEGORIZED MODERATE NUTRITION RISK. PATIENT WILL BE SEEN WITHIN 3-5 DAYS OF ADMISSION. 08/11/20 - 08/13/20 NIRALI RAE MBA, RD
[2020-08-09 08:00] VITALS: BP 104/56
[2020-08-09] MEDS: PANTOPRAZOLE 40 MG INJ VIAL IVP SCH (09:19)
[2020-08-09] MEDS: metroNIDAZOLE 500 MG/NS PREMIX 100 ML IV SCH ×3 (09:19→17:19)
--- NOTE | 2020-08-09 09:36 | NUR ---
ADMINISTERED PRESCRIBED MEDS PER MD ORDER. PATIENT TOLERATED WELL. MEDICATION EDUCATION PROVIDED. PATIENT VERBALIZED UNDERSTANDING. PATIENT LAYING IN BED WATCHING TV, SON AT BEDSIDE. PENDING MD/SURGEON ROUNDS FOR RECOMMENDATIONS. PATIENT NOTIFIED OF STATUS. SAFETY MEASURES IN PLACE. WILL CONTINUE TO MONITOR.
[2020-08-09 10:09] LABS: BASOPHILS % (AUTO) 0.3 % (0.0-2.0); EOSINOPHILS # (AUTO) 0.1 K/uL (0-0.4); EOSINOPHILS % (AUTO) 1.2 % (0.0-4.0); HEMATOCRIT 23.9 % (36-52); LYMPHOCYTES # (AUTO) 0.8 K/uL (2.0-11.5); LYMPHOCYTES % (AUTO) 10.1 % (20.5-51.1); MEAN CORPUSCULAR HEMOGLOBIN 30 pg (27-31); MEAN CORPUSCULAR HGB CONC 33 g/dL (33-37); MONOCYTES # (AUTO) 1.3 K/uL (0.8-1.0); MONOCYTES % (AUTO) 15.4 % (1.7-9.3); PLATELET COUNT (AUTO) 73 K/uL (140-450); RED BLOOD CELL COUNT(AUTO) 2.62 MIL/uL (4.20-6.10); RED CELL DISTRIBUTION WIDTH 19.6 % (11.6-13.7); WHITE BLOOD COUNT (AUTO) 8.1 K/uL (4.8-10.8)
[2020-08-09 10:30] LABS: ANION GAP 9.2 (8-16); CARBON DIOXIDE 25.8 mmol/L (21-32); CREATININE 0.9 mg/dL (0.6-1.3)
[2020-08-09 10:33] LABS: MAGNESIUM 1.8 mg/dL (1.8-2.4); PHOSPHORUS 3.2 mg/dL (2.5-4.9)
--- NOTE | 2020-08-09 10:35 | NUR ---
PATIENT AM TEMPERATURE 99; REASSESSED TEMP IS NOW 98.3. PATIENT RESTING IN BED W/ TV ON. DENIES PAIN, VISIBLE RISE AND FALL OF CHEST. NO SIGNS OF DISTRESS/DISCOMFORT. SAFETY MEASURES IN PLACE. WILL CONTINUE TO MONITOR.
[2020-08-09 12:00] VITALS: BP 103/57
--- NOTE | 2020-08-09 13:06 | NUR ---
ADMINISTERED PRESCRIBED MEDS PER MD ORDER. PATIENT TOLERATED WELL. PATIENT RESTING IN BED. DENIES PAIN. ABLE TO MAKE NEEDS KNOWN. SAFETY MEASURES IN PLACE. WILL CONTINUE TO MONITOR.
[2020-08-09 16:00] VITALS: BP 112/54
--- NOTE | 2020-08-09 16:13 | NUR ---
HOURLY ROUNDING PERFORMED. PATIENT RESTING IN BED W/ SON AT BEDSIDE. PATIENT DENIES PAIN, STATES FEELING COMFORTABLE. NO CONCERNS AT THE MOMENT. SAFETY MEASURES IN PLACE. WILL CONTINUE TO MONITOR.
--- NOTE | 2020-08-09 17:23 | NUR ---
ADMINISTERED PRESCRIBED MEDS PER MD ORDER. PATIENT TOLERATED WELL. MEDICATION EDUCATION PROVIDED. PATIENT VERBALIZED UNDERSTANDING. PATIENT HAD FAMILY VISIT AT WINDOW. SAFETY MEASURES IN PLACE. WILL CONTINUE TO MONITOR.
--- NOTE | 2020-08-09 19:00 | NUR ---
PATIENT RECEIVED IN BED, AAOX4. RESPIRATIONS EVEN, NONLABORED. NO S/S RESPIRATORY DISTRESS. S1/S2 AUSCULTATED. , SKIN INTACT, WARM AND DRY. IV SITE NOTED TO RIGHT AC 20G PATENT/INTACT, INFUSING FLUIDS WELL. NO S/S ACUTE DISTRESS. ABDOMEN SOFT, TENDER AND SLIGHTLY ROUNDED. BOWEL SOUNDS ACTIVE x4 QUADRANTS. PATIENT IS CONTINENT OF B/B. DISCUSSED WITH PATIENT RN PLAN OF CARE, MEDICAL REGIMEN AND FALL, SAFETY PRECAUTIONS. PATIENT REMAINS NPO. VERBALIZING NEEDS TO STAFF. CALL LIGHT PLACED WITHIN REACH. NO ACUTE DISTRESS NOTED.
[2020-08-09 21:10] VITALS: BP 110/68
[2020-08-09] MEDS: ACETAMINOPHEN 325 MG TAB PO PRN (21:13)
[2020-08-10] VITALS: BP 114/62
--- NOTE | 2020-08-10 | NUR ---
PATIENT SLEEPING DURING HOURLY ROUNDING. PATIENT DENIES PAIN, STATES FEELING COMFORTABLE. REMAINS NPO. RESPIRATIONS EVEN AND NONLABORED, CARDIAC SR. ANTIBIOTIC THERAPY CONTINUED WITH NO ADVERSE EFFECTS NOTED. PT REMAINS NPO. NO CONCERNS AT THE MOMENT. FALL AND SAFETY MEASURES CONTINUED. WILL CONTINUE TO MONITOR. AFEBRILE.
[2020-08-10 04:00] VITALS: BP 114/60
--- NOTE | 2020-08-10 07:30 | NUR ---
RECEIVED BEDSIDE ENDORSEMENT FROM NIGHTSTNFT NURSE FOR CONTINUITY OF CARE.
[2020-08-10 07:34] LABS: BASOPHILS % (AUTO) 0.3 % (0.0-2.0); EOSINOPHILS % (AUTO) 0.5 % (0.0-4.0); HEMATOCRIT 24.2 % (36-52); HEMOGLOBIN 8.1 g/dL (12.0-18.0); LYMPHOCYTES # (AUTO) 0.5 K/uL (2.0-11.5); LYMPHOCYTES % (AUTO) 7.8 % (20.5-51.1); MEAN CORPUSCULAR HEMOGLOBIN 31 pg (27-31); MEAN CORPUSCULAR HGB CONC 34 g/dL (33-37); MONOCYTES # (AUTO) 1.1 K/uL (0.8-1.0); MONOCYTES % (AUTO) 17.7 % (1.7-9.3); NEUTROPHILS # (AUTO) 4.4 K/uL (1.8-7.7); NEUTROPHILS % (AUTO) 73.7 % (42.2-75.2); PLATELET COUNT (AUTO) 78 K/uL (140-450); RED BLOOD CELL COUNT(AUTO) 2.63 MIL/uL (4.20-6.10); RED CELL DISTRIBUTION WIDTH 20.7 % (11.6-13.7); WHITE BLOOD COUNT (AUTO) 5.9 K/uL (4.8-10.8)
[2020-08-10 07:45] LABS: ANION GAP 9.1 (8-16); CARBON DIOXIDE 26.1 mmol/L (21-32); CREATININE 0.9 mg/dL (0.6-1.3); POTASSIUM 4.2 mmol/L (3.5-5.1)
[2020-08-10 08:00] VITALS: BP 113/61
[2020-08-10] MEDS: metroNIDAZOLE 500 MG/NS PREMIX 100 ML IV SCH ×3 (08:59→17:12)
[2020-08-10] MEDS: PANTOPRAZOLE 40 MG INJ VIAL IVP SCH (08:59)
--- NOTE | 2020-08-10 09:16 | NUR ---
ADMINISTERED PRESCRIBED MEDS PER MD ORDER. PATIENT TOLERATED WELL. MEDICATION EDUCATION PROVIDED. PATIENT VERBALIZED UNDERSTANDING. PATIENT DENIES PAIN. ABLE TO MAKE NEEDS KNOWN. SAFETY MEASURES IN PLACE. WILL CONTINUE TO MONITOR.
[2020-08-10] MEDS ORDERED: IRON SUCROSE COMPLEX 100 MG/5 ML VIAL IVP SCH (09:50)
[2020-08-10] MEDS: DEXT 5% /NACL 0.9% 1,000 ML IV SCH (09:51)
--- NOTE | 2020-08-10 11:20 | NUR ---
ADMINISTERED PRESCRIBED MEDS PER MD ORDER. PATIENT TOLERATED WELL. MEDICATION EDUCATION PROVIDED, PATIENT VERBALIZED UNDERSTANDING. PATIENT SEEN BY MD, ADVANCED TO CLEAR LIQUID DIET. SAFETY MEASURES IN PLACE. WILL CONTINUE TO MONITOR.
[2020-08-10 12:00] VITALS: BP 121/60
[2020-08-10] MEDS: HYDROcodone/APAP 7.5/325 MG 1 TAB PO PRN (13:59)
--- NOTE | 2020-08-10 14:00 | NUR ---
ADMINISTERED PRESCRIBED MEDS AND PRN MED FOR MODERATE PAIN PER MD ORDER. PATIENT TOLERATED WELL. MEDICATION EDUCATION PROVIDED. PATIENT VERBALIZED UNDERSTANDING. PATIENT HAS FAMILY VISIT AT WINDOW. SAFETY MEASURES IN PLACE. WILL CONTINUE TO MONITOR.
[2020-08-10] MEDS: FUROSEMIDE 20 MG/2 ML VIAL IVP SCH (14:01)
[2020-08-10 16:00] VITALS: BP 116/64
[2020-08-10] MEDS: FERROUS SULFATE 325 MG TABEC PO SCH (17:12)
--- NOTE | 2020-08-10 17:25 | NUR ---
ADMINISTERED PRESCRIBED MEDS PER MD ORDER. PATIENT TOLERATED WELL. MEDICATION EDUCATION PROVIDED. PATIENT VERBALIZED UNDERSTANDING. PATIENT COMPLAINED OF PAIN/TENDERNESS/SWELLING IN RAC IV SITE. REMOVED IV AND INSERTED 18G IV TO LAC. SAFETY MEASURES IN PLACE. WILL CONTINUE TO MONITOR.
--- NOTE | 2020-08-10 19:00 | NUR ---
PATIENT RECEIVED IN BED, AAOX4. RESPIRATIONS EVEN, NONLABORED. NO S/S RESPIRATORY DISTRESS. S1/S2 AUSCULTATED. , DX: ABDOMINAL PERFORATION. SKIN INTACT, WARM AND DRY. IV SITE NOTED TO RIGHT AC 20G PATENT/INTACT, INFUSING FLUIDS WELL. NO S/S ACUTE DISTRESS. ABDOMEN SOFT, TENDER AND SLIGHTLY ROUNDED. BOWEL SOUNDS ACTIVE x4 QUADRANTS. PATIENT IS CONTINENT OF B/B. DISCUSSED WITH PATIENT RN PLAN OF CARE, MEDICAL REGIMEN AND FALL, SAFETY PRECAUTIONS. PATIENT REMAINS NPO. VERBALIZING NEEDS TO STAFF. PATIENT CALM, AND COOPERATIVE WITH STAFF. NO ACUTE DISTRESS NOTED.
--- NOTE | 2020-08-10 19:16 | NUR ---
BEDSIDE ENDORSEMENT PROVIDED TO NIGHTSHIFT NURSE FOR CONTINUITY OF CARE.
[2020-08-10 20:00] VITALS: BP 118/68
[2020-08-10] MEDS: ACETAMINOPHEN 325 MG TAB PO PRN (22:12)
[2020-08-11] VITALS: BP 116/72
[2020-08-11] MEDS: DEXT 5% /NACL 0.9% 1,000 ML IV SCH ×2 (02:15→08:00)
[2020-08-11 04:00] VITALS: BP 118/68
[2020-08-11 06:29] LABS: CARBON DIOXIDE 22.8 mmol/L (21-32); POTASSIUM 3.8 mmol/L (3.5-5.1)
[2020-08-11 07:20] LABS: BASOPHILS % (AUTO) 0.4 % (0.0-2.0); EOSINOPHILS % (AUTO) 0.3 % (0.0-4.0); HEMATOCRIT 23.7 % (36-52); HEMOGLOBIN 7.9 g/dL (12.0-18.0); LYMPHOCYTES # (AUTO) 0.8 K/uL (2.0-11.5); LYMPHOCYTES % (AUTO) 9.7 % (20.5-51.1); MEAN CORPUSCULAR HEMOGLOBIN 30 pg (27-31); MEAN CORPUSCULAR HGB CONC 33 g/dL (33-37); MEAN CORPUSCULAR VOLUME 91.8 fL (80-94); MONOCYTES # (AUTO) 1.3 K/uL (0.8-1.0); MONOCYTES % (AUTO) 16.4 % (1.7-9.3); NEUTROPHILS # (AUTO) 5.8 K/uL (1.8-7.7); NEUTROPHILS % (AUTO) 73.2 % (42.2-75.2); PLATELET COUNT (AUTO) 94 K/uL (140-450); RED BLOOD CELL COUNT(AUTO) 2.59 MIL/uL (4.20-6.10); RED CELL DISTRIBUTION WIDTH 20.6 % (11.6-13.7)
--- NOTE | 2020-08-11 08:48 | NUR ---
Patient awake, alert and oriented. Denies pain, resting comfortably in bed and denies further needs.
[2020-08-11 09:06] LABS: FOLIC ACID 5.9 ng/mL (>3.0)
[2020-08-11] MEDS: FERROUS SULFATE 325 MG TABEC PO SCH ×2 (09:50→17:53)
[2020-08-11] MEDS: PANTOPRAZOLE 40 MG INJ VIAL IVP SCH (09:52)
[2020-08-11] MEDS: ASCORBIC ACID 500 MG TAB PO SCH (09:52)
[2020-08-11] MEDS: FUROSEMIDE 20 MG/2 ML VIAL IVP SCH (09:52)
[2020-08-11] MEDS: metroNIDAZOLE 500 MG/NS PREMIX 100 ML IV SCH ×3 (09:54→17:53)
[2020-08-11 11:15] VITALS: BP 106/61
--- NOTE | 2020-08-11 15:10 | NUR ---
DC PLANN[age] YRS OLD MALE PATIENT WAS ADMITTED FROM HOME WITH A DX OF ABDOMINAL PERFORATION. PT RECENTLY DISCHARGE FROM [facility] AFTER COLONOSCOPY FOR GI BLEEDING AND UNDERWENT HEMORRHOIDECTOMY ON 08/05/[address] ABD SHOWED SMALL AMOUNT OF FREE AIR . SEEN BY DR STUART ORDERED NPO, IV ABX, AND MONITOR FOR SEPSIS. DC PLAN TO GO HOME WHEN STABLE. CM TO FOLLOW
[2020-08-11 16:00] VITALS: BP 103/65
[2020-08-11] MEDS ORDERED: PHYTONADIONE 10 MG/ML AMP SUBQ ONE (17:00)
[2020-08-11] MEDS ORDERED: PHYTONADIONE 10 MG in NACL 0.9% 50 ML IV SCH (18:00)
--- NOTE | 2020-08-11 18:37 | NUR ---
Left message for picc line nurse for placement of a midline. Order placed and awaiting call back from picc line Nurse. Patient needs two units of blood and need IV access.
--- NOTE | 2020-08-11 19:30 | NUR ---
PER RN TEVIN SAID - APRIL I TRIED TO RE INSERT IV ACCESS TO THE PT BUT HE HAS HARD STICK - IN FACT I REFER TO THE DRGrayson FOR MIDLINE INSERTION - I GOT ONE BUT I USED G24 - TO SUM UP THE FLAGYL IS GOING ON - TO SUM UP - I DID NOT GIVE THE VIT K BECAUSE I 'M GIVING THE FLAGYL TIV - TO MICHEL ABARCA SAID - APRIL AFTER THE FLAGYL IV CONSUMED - YOU HAVE TO START THE VIT K TIV - AND IT IS ALREADY AT THE BED SIDE - HANGING IN THE IV POLE . I FOUND THE VIT K HANGING IN THE IV POLE AT PT'S BEDSIDE . Addendum: 08/11/20 at 2200 by April Nielsen RN CHARGE NURSE DONALD REVIEWED THE EMAR - SHE FOUND OUT THE IV VIT K ALREADY SIGNED BY TEVIN - BUT IN ACTUAL SITUATION - HE ENDORSED TO IT IS NOT GIVEN DUE TO FLAGYL IS STILL GOING ON ON THAT TIME - I WILL ASK TO TEVIN TO FIX IT FOR DOCUMENTATION .
[2020-08-11 20:00] VITALS: BP 110/65
--- NOTE | 2020-08-11 20:55 | NUR ---
CALLED PICC LINE NURSE AGAIN AND LEFT MESSAGE FOR THEM THAT PT NEEDS MID LINE TONIGHT.BECAUSE PT WILL HAVE SURGERY IN AM AND NEEDS TO HAVE 2 UNITS FFP BEFORE SURGERY.
--- NOTE | 2020-08-11 21:03 | NUR ---
PER DR Grayson SARAVIA - IF THE MID LINE 1 RN AND 1 CHARGE NURSE MAY SIGN THE MIDLINE REP. OF THE DOCTOR - HE SAID IT IS EMERGENT . - CHARGE NURSE DONALD TORIBIO AND COMPUTER SCIENCES PROFESSOR . Addendum: 08/11/20 at 2335 by Marychuy Nielsen RN PAULY FLORES AWARE SHE HAVE TO PUSH THE MIDLINE LINE INSERTION FF UP .
[2020-08-11] MEDS: PHYTONADIONE 10 MG in NACL 0.9% 50 ML IV SCH (21:11)
--- NOTE | 2020-08-11 21:11 | NUR ---
the 1800 due vit k 10 mg in nss 50 ml given - will inform Addendum: 08/12/20 at 0344 by Marychuy Nielsen RN WILL INFORM PHARMACIST TO RE ARRANGE THE VIT K SCHEDULE FOR 9AM 08/12/20 - PER PHARMACIST TEVIN HAVE TO UNDO THE ONE HE CHARTED ON EMAR . - CRISTIANA - CHARGE NURSE INFORMED .
[2020-08-11] MEDS: ACETAMINOPHEN 325 MG TAB PO PRN (21:46)
[2020-08-12] VITALS: BP 110/60
--- NOTE | 2020-08-12 03:44 | NUR ---
BROWNISH U.O ON URINAL - BP 110 /62 , [place] 88 - NO COMPLAIN MADE - AAOX4 . STILL NO MIDLINE . - CHARGE NURSE INFORM
[2020-08-12 04:00] VITALS: BP 99/49
--- NOTE | 2020-08-12 04:42 | NUR ---
ENDORSED TO DONALD - I TOLD HER SHE HAVE TO INFORM THE PHARMACIST W/ REGARDS WHAT HAPPENNED TO IV VIT K - PHARMACIST HAVE TO FIX THE SCHED. Addendum: 08/12/20 at 0557 by Marychuy Nielsen RN ENDORSED - PT- STABLE .
--- NOTE | 2020-08-12 04:42 | NUR ---
RECEIVED REPORT OF PT IN STABLE CONDITION.CALLED PICC LINE NURSE AGAIN AND LEFT MESSAGE.WILL CALL THEM AT 06 AM.PT SLEEPING AT THIS TIME W/O S/S OF ANY DISTRESS. WILL CONTINUE MONITORING.
--- NOTE | 2020-08-12 06:13 | NUR ---
PT'S CONDITION IS STABLE.IVF IS IN PROGRESS.STILL WAITING FOR PICC LINE NURSE TO CALL AND COME TO DO MID LINE.I WILL CALL THEM AGAIN AT 0630.
[2020-08-12 06:38] LABS: MAGNESIUM 1.7 mg/dL (1.8-2.4); PHOSPHORUS 2.2 mg/dL (2.5-4.9)
[2020-08-12 06:44] LABS: BASOPHILS % (AUTO) 0.2 % (0.0-2.0); EOSINOPHILS # (AUTO) 0.2 K/uL (0-0.4); HEMATOCRIT 23.1 % (36-52); HEMOGLOBIN 7.6 g/dL (12.0-18.0); LYMPHOCYTES # (AUTO) 1.1 K/uL (2.0-11.5); LYMPHOCYTES % (AUTO) 13.1 % (20.5-51.1); MEAN CORPUSCULAR HEMOGLOBIN 31 pg (27-31); MEAN CORPUSCULAR HGB CONC 33 g/dL (33-37); MEAN CORPUSCULAR VOLUME 92.6 fL (80-94); MONOCYTES # (AUTO) 1.5 K/uL (0.8-1.0); MONOCYTES % (AUTO) 16.5 % (1.7-9.3); NEUTROPHILS % (AUTO) 68.2 % (42.2-75.2); PLATELET COUNT (AUTO) 107 K/uL (140-450); RED BLOOD CELL COUNT(AUTO) 2.49 MIL/uL (4.20-6.10); RED CELL DISTRIBUTION WIDTH 20.2 % (11.6-13.7); WHITE BLOOD COUNT (AUTO) 8.8 K/uL (4.8-10.8)
[2020-08-12 06:46] LABS: ANION GAP 8.8 (8-16); CARBON DIOXIDE 25.8 mmol/L (21-32); CREATININE 0.9 mg/dL (0.6-1.3); POTASSIUM 3.6 mmol/L (3.5-5.1)
[2020-08-12 06:47] LABS: PROTHROMBIN TIME 19.5 secs (10.8-13.4)
--- NOTE | 2020-08-12 07:38 | NUR ---
REPORT GIVEN TO SALAS REYNOSO.[facility]E PICC LINE NURSE CALLED.HE WILL COME SOON TO INSERT MID LINE FOR PT.
--- NOTE | 2020-08-12 07:40 | NUR ---
PT RECEIVED FROM NIGHT NURSE. ALL SAFETY MEASURES ARE IN PLACE. WILL CONTINUE TO MONITOR.
[2020-08-12 08:00] VITALS: BP 105/61
[2020-08-12] MEDS: FERROUS SULFATE 325 MG TABEC PO SCH ×2 (08:56→18:01)
[2020-08-12] MEDS: metroNIDAZOLE 500 MG/NS PREMIX 100 ML IV SCH ×3 (08:56→21:15)
[2020-08-12] MEDS: PANTOPRAZOLE 40 MG INJ VIAL IVP SCH (08:56)
[2020-08-12] MEDS: ASCORBIC ACID 500 MG TAB PO SCH (08:56)
[2020-08-12] MEDS: FUROSEMIDE 20 MG/2 ML VIAL IVP SCH (09:00)
[2020-08-12] MEDS ORDERED: PHYTONADIONE 10 MG/ML AMP SUBQ ONE (09:00)
--- NOTE | 2020-08-12 09:02 | NUR ---
MEDICATION GIVEN PER MD ORDER. PT EDUCATED AND VERBALIZED UNDERSTANDING. PT TOLERATED WELL. NO S/S OF DISTRESS. ALL SAFETY MEASURES ARE IN PLACE
[2020-08-12] MEDS ORDERED: LIDOCAINE 1% 500 MG/50 ML VIAL ONE (10:16)
[2020-08-12] MEDS ORDERED: BUPIVACAINE MPF 0.25% 10 ML VIAL INJ ONE ×2 (10:16→10:19)
--- NOTE | 2020-08-12 11:45 | NUR ---
PT LEFT UNIT FOR PROCEDURE
[2020-08-12] MEDS ORDERED: ROCURONIUM 50 MG/5 ML VIAL IV ONE (12:20)
[2020-08-12] MEDS ORDERED: PROPOFOL 200 MG/20 ML VIAL IV ONE (12:20)
[2020-08-12] MEDS ORDERED: DEXAMETHASONE 4 MG/ML VIAL ONE (12:20)
[2020-08-12] MEDS ORDERED: fentaNYL citrate 0.05 MG/ML VIAL ONE (12:20)
[2020-08-12] MEDS ORDERED: SUCCINYLCHOLINE CHLORIDE 200 MG/10 ML VIAL IVP ONE (12:20)
[2020-08-12] MEDS ORDERED: SEVOFLURANE 250 ML BTL INH ONE (12:20)
[2020-08-12] MEDS ORDERED: MIDAZOLAM 2 MG/2 ML VIAL ONE (12:20)
--- NOTE | 2020-08-12 12:55 | NUR ---
SOCIAL WORK NOTE: Patient's Orientation Unable To Assess Information Provided By DANIEL SADLER - Comments SW WAS UNABLE TO MEET PATIENT AT BEDSIDE. SW COMPLETED ASSESSMENT WITH PATIENT'S . Foiling Machine Operator, Realtionship and Phone Number DANIEL SADLER [phone] MIGUE SADLER SON [phone] Healthcare Power of Flight Controls Engineer No Does Patient Have a POLST No Identifying Problems No Social Work Triggers Is A Social Work Consult Needed No Mandate Report Filed No Explanation Of Identifying Problems PATIENT IS A 54-YEAR-OLD MALE ADMITTED FOR ABDOMINAL PERFORATION. PATIENT HAS PMHX OF CIRRHOSIS. PER , PATIENT IS NOT CURRENTLY ABUSING ALCOHOL OR OTHER SUBSTANCES. SW WILL PROVIDE SUBSTANCE ABUSE RESOURCES TO PATIENT AT BEDSIDE. Admitted From Home Pre-Admission Level Of Functioning Status Independent With DME Level Of Functioning Comment PER , PATIENT USES WHEELCHAIR AT WHEN NEEDED FOR WEAKNESS, BUT IS AMBULATORY. Prior Resources/Services Used In Last 12 Months No Prior Resources Used Prior DME Wheelchair Dialysis Comments N/A Living Situation Lives With Family House Patient Had Caregiver No Home Support No Caregiver Issues Financial Issues No Known Financial Issue Referral To The Financial Counselor Needed No Factors/Needs No D/C Needs Identified Pt/Rep Participated In Discharge Plan Yes Patient/Family Agress With Discharge Plan Yes Discharge Plan Comments TENTATIVE DISCHARGE PLAN IS FOR PATIENT TO RETURN HOME. DC Plan Status Initiated
[2020-08-12] MEDS: LACTATED RINGERS 1,000 ML IV SCH ×2 (13:25→21:45)
[2020-08-12] MEDS ORDERED: ONDANSETRON 4 MG/2 ML VIAL IVP PRN (13:25)
[2020-08-12] MEDS ORDERED: diphenhydrAMINE 50 MG/ML VIAL IVP PRN (13:25)
[2020-08-12] MEDS ORDERED: MEPERIDINE 25 MG/ML SYR IVP PRN (13:25)
[2020-08-12] MEDS ORDERED: GELATIN SPONGE 100 1 SPG TP ONE (13:30)
[2020-08-12] MEDS ORDERED: MAGNESIUM OXIDE 400 MG TAB PO SCH (13:45)
[2020-08-12] MEDS: DEXT 5% /NACL 0.9% 1,000 ML IV SCH (15:00)
[2020-08-12] MEDS: HYDROmorphone 1 MG/ML AMP IVP PRN ×2 (15:04→18:01)
[2020-08-12 16:00] VITALS: BP 118/71
[2020-08-12] MEDS: PHYTONADIONE 10 MG in NACL 0.9% 50 ML IV SCH (16:51)
--- NOTE | 2020-08-12 18:15 | NUR ---
PLASMA TRANSFUSION STARTED. PT TOLERATING WELL. NO S/S OF DISTRESS WILL CONTINUE TO MONITOR
[2020-08-12 18:24] LABS: PROTHROMBIN TIME 19.4 secs (10.8-13.4)
--- NOTE | 2020-08-12 19:38 | NUR ---
ENDORSED PT TO BUCKLE AND BUTTON MAKER NURSE FOR CONTINUITY OF CARE AND CONTINUITY OF THE FROZEN PLASMA TRANSFUSION, PT IS STABLE AT THIS TIME.
--- NOTE | 2020-08-12 19:39 | NUR ---
RECD. RESTING IN BED, AWAKE, A/OX4. RESPIRATION EVEN AND UNLABORED. PLASMA INFUSING AT 300 ML/HR, RIGHT UPPER ARM PICC LINE, ABDOMEN ROUND, NON TENDER WITH FAINT BOWEL SOUNDS ON ALL QUADRANTS. VERBALIZED ABLE TO HAVE BM DAILY. NOTED EDEMA 2+ ON BILATERAL LOWER EXTREMITIES. ELEVATED BLE ON TWO PILLOWS. WITH HEEL PROTECTORS IN PLACED. DENIES PAIN 0/10.
--- NOTE | 2020-08-12 20:39 | NUR ---
RECEIVED REPORT FROM KULDEEP PARIKH LVN. DISCUSSED PLAN OF CARE WITH SILKE.
--- NOTE | 2020-08-12 21:54 | NUR ---
INFORMED DR. MCNAIR, PATIENT IS REQUESTING FOR DILAUDID 0.5 MG IV TO BE ORDERED BECAUSE IT WAS DISCONTINUED. ORDER A ONE TIME DOSE OF DILAUDID 0.5 MG IV ONCE, AND TO LET PATIENT TRY ON PAIN PILLS.
[2020-08-12] MEDS: HYDROcodone/APAP 7.5/325 MG 1 TAB PO PRN (22:15)
[2020-08-13] MEDS ORDERED: HYDROmorphone 1 MG/ML AMP IVP SCH (00:30)
--- NOTE | 2020-08-13 00:30 | NUR ---
USED THE BED [place] TO HAVE BM BUT UNABLE TO DEFECATE, JUST VOIDED APPROX 200 ML OF LIGHT TEA COLORED URINE, NO BLOOD NOTED IN THE BEDPAN.
--- NOTE | 2020-08-13 00:55 | NUR ---
ASSISTED TO REPOSITION IN BED. 2ND FROZEN PLASMA STARTED.
--- NOTE | 2020-08-13 01:40 | NUR ---
PLASMA TRANSFUSION FINISHED, NO ALLERGIC REACTION NOTED.
[2020-08-13 01:45] VITALS: BP 124/69
--- NOTE | 2020-08-13 03:00 | NUR ---
CHECKED PATIENT, AWAKE IN BED. WRITING SOMETHING. ADVISED TO GO TO SLEEP.
--- NOTE | 2020-08-13 04:30 | NUR ---
SLEEPING COMFORTABLY IN BED.
[2020-08-13] MEDS: metroNIDAZOLE 500 MG/NS PREMIX 100 ML IV SCH ×3 (05:09→20:18)
--- NOTE | 2020-08-13 06:00 | NUR ---
DID HIS AM CARE AT THE BEDSIDE.
[2020-08-13] MEDS: LACTATED RINGERS 1,000 ML IV SCH (06:05)
[2020-08-13 06:53] LABS: BASOPHILS % (AUTO) 0.2 % (0.0-2.0); HEMATOCRIT 21.8 % (36-52); HEMOGLOBIN 7.1 g/dL (12.0-18.0); LYMPHOCYTES # (AUTO) 0.8 K/uL (2.0-11.5); LYMPHOCYTES % (AUTO) 7.9 % (20.5-51.1); MEAN CORPUSCULAR HEMOGLOBIN 31 pg (27-31); MEAN CORPUSCULAR HGB CONC 33 g/dL (33-37); MONOCYTES # (AUTO) 0.9 K/uL (0.8-1.0); MONOCYTES % (AUTO) 9.4 % (1.7-9.3); NEUTROPHILS # (AUTO) 8.2 K/uL (1.8-7.7); NEUTROPHILS % (AUTO) 82.5 % (42.2-75.2); PLATELET COUNT (AUTO) 138 K/uL (140-450); RED BLOOD CELL COUNT(AUTO) 2.32 MIL/uL (4.20-6.10); RED CELL DISTRIBUTION WIDTH 20.2 % (11.6-13.7); WHITE BLOOD COUNT (AUTO) 9.9 K/uL (4.8-10.8)
--- NOTE | 2020-08-13 07:09 | NUR ---
CONDITION REMAIN STABLE. ENDORSED TO AM SHIFT NURSE FOR CONTINUITY OF CARE.
--- NOTE | 2020-08-13 07:10 | NUR ---
REC'D REPORT FROM MEDICAL DEVICE SALES NURSE, PT ON RA. PICC LINE R.UA, PATENT, A/OX4, CALL LIGHT WITHIN REACH. BED LOWEST POSITION. PT STABLE WILL CONTINUE TO MONITOR
[2020-08-13 07:13] LABS: ANION GAP 11.8 (8-16); CARBON DIOXIDE 23.2 mmol/L (21-32); CREATININE 0.9 mg/dL (0.6-1.3)
[2020-08-13] MEDS: HYDROcodone/APAP 7.5/325 MG 1 TAB PO PRN ×3 (07:35→21:46)
[2020-08-13 08:00] VITALS: BP 116/33
--- NOTE | 2020-08-13 08:40 | NUR ---
DR. PADMINI PRINCE FROM [facility] AT BEDSIDE TO CONSULT PT. ORDERED PT, PTT/INR. ORDER ENTERED INTO SYSTEM. PER DR. PRINCE, SHE RECOMMENDS 1 UNIT PRBC IF HGB <7.0.
[2020-08-13] MEDS: FERROUS SULFATE 325 MG TABEC PO SCH ×2 (08:58→17:00)
[2020-08-13] MEDS: FUROSEMIDE 20 MG/2 ML VIAL IVP SCH (09:04)
[2020-08-13] MEDS: ASCORBIC ACID 500 MG TAB PO SCH (09:04)
[2020-08-13] MEDS: PANTOPRAZOLE 40 MG INJ VIAL IVP SCH (09:04)
[2020-08-13] MEDS: DOCUSATE SODIUM 100 MG GELCAP PO PRN (09:04)
[2020-08-13] MEDS ORDERED: FUROSEMIDE 20 MG/2 ML VIAL IVP ONE (12:55)
[2020-08-13] MEDS ORDERED: FUROSEMIDE 40 MG/4 ML VIAL IVP SCH (13:00)
--- NOTE | 2020-08-13 13:30 | NUR ---
08/13/20 RD INITIAL ASSESSMENT COMPLETED PLEASE REFER TO NUTRITION ASSESSMENT UNDER CARE ACTIVITY FOR ESTIMATED NUTRITIONAL NEEDS. 1. CONTINUE CARDIAC DIET TOLERATED 2. RD TO FOLLOW-UP 3-5 DAYS, MODERATE RISK JUAN CORLEY RD
[2020-08-13 16:00] VITALS: BP 107/63
--- NOTE | 2020-08-13 19:10 | NUR ---
RECEIVED BEDSIDE REPORT FROM DAY SHIFT NURSE FOR CONTINUITY OF CARE. PT IS AWAKE AND ALERT, SPEAKING APPROPRIATELY. INDONESIAN AND YI SPEAKING. ON 3L O2 NC WITH BREATHING UNLABORED. MED SURG PATIENT. GENERALIZED WEAKNESS WITH BEDPAN AT BEDSIDE FOR BM. SKIN IS WARM, DRY, AND INTACT. BILATERAL LE EDEMA. RIGHT UPPER ARM SALINE LOCKED. BLOOD TRANSFUSION JUST FINISHED, DAY SHIFT AT BEDSIDE REMOVING LINES. PT IS STABLE AT THIS TIME. PLAN OF CARE DISCUSSED.
--- NOTE | 2020-08-13 19:32 | NUR ---
ENDORSED PT TO BIAS MACHINE OPERATOR NURSE FOR CONTINUITY OF CARE, PT ON 3L NC, BED LOWEST POSITION. PT STABLE
[2020-08-13 20:00] VITALS: BP 109/71
--- NOTE | 2020-08-13 21:00 | NUR ---
PT WAS GIVEN AN INCENTIVE SPIROMETER REQUESTED BY SON AT THE BEDSIDE TO HELP IMPROVE BREATHING. PT IS CURRENTLY ON 3L O2 NC WITH BREATHING UNLABORED. EDUCATION WAS PROVIDED TO PT AND SON ON THE PROPER USE OF INCENTIVE SPIROMETER. RETURN DEMONSTRATION WAS COMPLETED. PT VERBALIZED UNDERSTANDING.
--- NOTE | 2020-08-13 21:46 | NUR ---
PT STATES HE HAS PAIN AT A SCALE OF 6/10 IN HIS ABDOMEN. PT WAS GIVEN NORCO FOR PAIN. WILL CONTINUE TO MONITOR PAIN.
--- NOTE | 2020-08-13 22:05 | NUR ---
PT JUST HAD A BM AND AMERICAN SIGN LANGUAGE INTERPRETER CALLED RN TO BEDSIDE TO VIEW CONTENTS. DARK RED BLOOD WAS SEEN WITH FEW CLOTS. DR. STUART WAS NOTIFIED VIA TEXT ABOUT THIS INFORMATION WELL THE HGB FROM 7.6 TO 7.1. INFORMED HIM THAT THE PT RECEIVED ONE UNIT OF PRBC THIS AFTERNOON. ALSO INFORMED HIM ABOUT THE LATEST BP 109/71 AND HR 86. WILL WAIT FOR RESPONSE FROM DOCTOR.
--- NOTE | 2020-08-13 23:12 | NUR ---
SENT DR. ANDRE THE SAME MESSAGE THAT WAS SENT TO DR. STUART AN HOUR AGO. WILL WAIT FOR REPLY.
--- NOTE | 2020-08-13 23:43 | NUR ---
NOTIFIED DR. MCNAIR OF THE BM WITH MODERATE AMOUNT OF DARK RED BLOOD IN STOOL AND FEW CLOTS. WILL WAIT FOR RESPONSE BACK.
--- NOTE | 2020-08-13 23:50 | NUR ---
DR. MCNAIR RESPONDED AND STATED THAT THE PATIENT HAS HAD THIS ISSUE AND THAT IT WILL BE RELAYED TO THE SURGEON IN THE AM. HE ALSO STATES THAT THE PT RECEIVED A BLOOD TRANSFUSION OF 1 UNIT PRBC TODAY. WILL MONITOR BLEEDING AND WILL RELAY TO SURGEON IN THE AM.
--- NOTE | 2020-08-14 | NUR ---
PT IS ASLEEP. NO DISTRESS NOTED. PT HAS NOT HAD ANOTHER BM YET. NC IN PLACE WITH 3L O2 PROVIDED. BREATHING IS UNLABORED. CHEST RISE AND FALL SYMMETRICAL. NO PAIN NOTED. WILL CONTINUE TO MONITOR.
--- NOTE | 2020-08-14 02:00 | NUR ---
PT IS NO LONGER USING NC WITH 3L O2. NO SOB OR DIFFICULTY BREATHING. O2 SAT IS 93% ON RA. PT IS RESTING COMFORTABLY.
[2020-08-14 04:00] VITALS: BP 102/56
--- NOTE | 2020-08-14 04:00 | NUR ---
PT IS AWAKE AND ALERT. A&OX4. NO BM SINCE YESTERDAY. DENIES PAIN. CALL LIGHT WITHIN REACH. PT ON CELL PHONE WATCHING VIDEOS. PT STABLE.
[2020-08-14] MEDS: metroNIDAZOLE 500 MG/NS PREMIX 100 ML IV SCH (04:52)
--- NOTE | 2020-08-14 05:00 | NUR ---
PT IS AWAKE AND SPEAKING APPROPRIATELY. PROVIDED PT WITH ORANGE JUICE AND ITEMS TO BRUSH TEETH. PT IS IN BED BRUSHING TEETH AND WASHING FACE. NO DISTRESS NOTED. PT IS STABLE.
--- NOTE | 2020-08-14 06:28 | NUR ---
PT ORDERED MEALS WITH ASSISTANCE OF NURSE. MENU SELECTION WAS DROPPED OFF WITH FNS.
[2020-08-14 06:31] LABS: ANION GAP 8.5 (8-16); CARBON DIOXIDE 26.1 mmol/L (21-32); CREATININE 0.8 mg/dL (0.6-1.3); POTASSIUM 3.6 mmol/L (3.5-5.1)
[2020-08-14 06:43] LABS: BASOPHILS % (AUTO) 0.1 % (0.0-2.0); EOSINOPHILS % (AUTO) 0.1 % (0.0-4.0); HEMATOCRIT 24.6 % (36-52); HEMOGLOBIN 8.1 g/dL (12.0-18.0); LYMPHOCYTES # (AUTO) 0.8 K/uL (2.0-11.5); LYMPHOCYTES % (AUTO) 8.3 % (20.5-51.1); MEAN CORPUSCULAR HEMOGLOBIN 31 pg (27-31); MEAN CORPUSCULAR HGB CONC 33 g/dL (33-37); MEAN CORPUSCULAR VOLUME 92.8 fL (80-94); MONOCYTES # (AUTO) 1.1 K/uL (0.8-1.0); MONOCYTES % (AUTO) 11.2 % (1.7-9.3); NEUTROPHILS # (AUTO) 8.1 K/uL (1.8-7.7); NEUTROPHILS % (AUTO) 80.3 % (42.2-75.2); PLATELET COUNT (AUTO) 135 K/uL (140-450); RED BLOOD CELL COUNT(AUTO) 2.65 MIL/uL (4.20-6.10); RED CELL DISTRIBUTION WIDTH 19.5 % (11.6-13.7); WHITE BLOOD COUNT (AUTO) 10.1 K/uL (4.8-10.8)
--- NOTE | 2020-08-14 07:33 | NUR ---
ENDORSED PT TO DAY SHIFT NURSE. PT IS STABLE AT THIS TIME. PLAN OF CARE DISCUSSED.
--- NOTE | 2020-08-14 07:35 | NUR ---
PT RECEIVED FROM NIGHT NURSE. PT IS RESTING IN BED. NO S/S OF DISTRESS. CALL LIGHT IS WITHIN REACH. ALL SAFETY MEASURES IN PLACE. WILL CONTINUE TO MONITOR.
[2020-08-14] MEDS: DOCUSATE SODIUM 100 MG GELCAP PO PRN (08:38)
[2020-08-14] MEDS: FERROUS SULFATE 325 MG TABEC PO SCH (08:38)
[2020-08-14] MEDS: FUROSEMIDE 20 MG/2 ML VIAL IVP SCH (08:39)
[2020-08-14] MEDS: ASCORBIC ACID 500 MG TAB PO SCH (08:39)
[2020-08-14] MEDS: PANTOPRAZOLE 40 MG INJ VIAL IVP SCH (08:41)
[2020-08-14] MEDS ORDERED: MAGNESIUM OXIDE 400 MG TAB PO SCH (09:00)
--- NOTE | 2020-08-14 09:01 | NUR ---
MEDICATIONS GIVEN PER MD ORDER. PT EDUCATED AND VERBALIZED UNDERSTANDING. PT TOLERATED WELL. NO S/S OF DISTRESS. CALL LIGHT IS WITHIN REACH. ALL SAFETY MEASURES IN PLACE. WILL CONTINUE TO MONITOR.
[2020-08-14] MEDS ORDERED: POTA10TE30 PO (09:04)
[2020-08-14] MEDS ORDERED: METR500T1 PO (09:04)
[2020-08-14] MEDS ORDERED: FURO20TA8 PO (09:04)
--- NOTE | 2020-08-14 11:01 | NUR ---
SPOKE TO PT'S SON MIGUE. HE WOULD LIKE TO SPEAK TO MD. AWARE. PT IS RESTING IN BED. NO S/S OF DISTRESS. CALL LIGHT IS WITHIN REACH. ALL SAFETY MEASURES IN PLACE. WILL CONTINUE TO MONITOR.
--- NOTE | 2020-08-14 11:50 | NUR ---
PT LEFT HOME. DISCHARGE INSTRUCTIONS GIVEN. PT'S LINE WAS TAKEN OUT CATHETER INTACT. ARM BANDS REMOVED. PT STABLE.
== END 2020-08-14 12:00 | disposition home or self-care (01) | DRG 853 ==
LOC: MED 20:43 → MTU 23:34
PROVIDERS: ADMIT Hospitalist; ATTEND Hospitalist
PROC: 30233K1 Transfusion of Nonautologous Frozen Plasma into Peripheral Vein, Percutaneous Approach (ICD-10-PCS; 2020-08-12)
PROC: 06LY3ZC Occlusion of Hemorrhoidal Plexus, Percutaneous Approach (ICD-10-PCS; principal; 2020-08-12 11:30)
PROC: 30233N1 Transfusion of Nonautologous Red Blood Cells into Peripheral Vein, Percutaneous Approach (ICD-10-PCS; 2020-08-13)
DX: A41.9 Sepsis, unspecified organism (principal); E43 Unspecified severe protein-calorie malnutrition; K63.1 Perforation of intestine (nontraumatic); J90 Pleural effusion, not elsewhere classified; E87.1 Hypo-osmolality and hyponatremia; D68.9 Coagulation defect, unspecified; K62.5 Hemorrhage of anus and rectum; K74.60 Unspecified cirrhosis of liver; K80.20 Calculus of gallbladder without cholecystitis without obstruction; R60.1 Generalized edema; R16.1 Splenomegaly, not elsewhere classified; D50.9 Iron deficiency anemia, unspecified; D69.6 Thrombocytopenia, unspecified; K64.8 Other hemorrhoids; Z20.822 Contact with and (suspected) exposure to COVID-19; D63.8 Anemia in other chronic diseases classified elsewhere; Z68.36 Body mass index [BMI] 36.0-36.9, adult
CPT/HCPCS: 36415; 71045; 74022; 80048; 80053; 81003; 82607; 82728; 82746; 82977; 83540; 83605; 83690; 83735; 83880; 84100; 84484; 85025; 85045; 85384; 85610; 85730; 86886; 86900; 86901; 86920; 87040; 87081; 93005; 99291; C9113; J0330; J0696; J1100; J1170; J1756; J1940; J2001; J2250; J2270; J2704; J3010; J3430; J3490; J7030; J7042; J7060; P9016; P9017

== ENCOUNTER 2024-03-02 12:42 | Emergency (ER) | payer BC ==
[~2024-03-02] VITALS: Ht 180.3 cm; Wt 90.3 kg
[~2024-03-02 12:42] MED LIST changes: -ACET-8386 PO; +ACET-8905 PO; +DOCU-299 PO; -LACT-103 PO; +LACT-191 PO; +METR500T1 PO; +POTA10TA70 PO
[2024-03-02 13:26] VITALS: BP 123/61; PULSE 79; RESP 16; TEMP 98.3; O2SAT 98
[2024-03-02] MEDS ORDERED: IBUP-2218 PO (16:22)
[2024-03-02] MEDS ORDERED: LIDO1ADH54 TP (16:22)
[2024-03-02] MEDS ORDERED: HYDR-5071 PO ×2 (16:22→21:15)
[2024-03-02] MEDS ORDERED: GABA300C PO (16:22)
[2024-03-02 16:28] VITALS: BP 123/61; PULSE 79; RESP 16; TEMP 98.3; O2SAT 98
== END 2024-03-02 16:42 | disposition home or self-care (01) ==
LOC: MED 12:42
DX: S22.31XA Fracture of one rib, right side, initial encounter for closed fracture (principal); S52.121A Displaced fracture of head of right radius, initial encounter for closed fracture; Z98.890 Other specified postprocedural states; Z79.899 Other long term (current) drug therapy; W01.0XXA Fall on same level from slipping, tripping and stumbling without subsequent striking against object, initial encounter; Y92.89 Other specified places as the place of occurrence of the external cause; Y93.89 Activity, other specified; Y99.8 Other external cause status
CPT/HCPCS: 29105; 71101; 73090; 99284